=== PATIENT | male | born 1935 | race Caucasian/White ===

== ENCOUNTER 2023-03-13 18:27 | Emergency (ER) | payer MEDICARE ==
[~2023-03-13] VITALS: Ht 182.9 cm; Wt 93.2 kg
[2023-03-13 18:52] VITALS: TEMP 98.7
[2023-03-13 22:40] VITALS: BP 138/75; PULSE 73; RESP 18
[2023-03-13] MEDS: DOXYCYCLINE HYCLATE 100 MG TABLET PO ONE (22:46)
== END 2023-03-14 00:22 | disposition home or self-care (01) ==
LOC: EMS 18:27
DX: S61.411A Laceration without foreign body of right hand, initial encounter (principal); J44.9 Chronic obstructive pulmonary disease, unspecified; X58.XXXA Exposure to other specified factors, initial encounter; Y93.89 Activity, other specified; Y92.89 Other specified places as the place of occurrence of the external cause; Y99.8 Other external cause status
CPT/HCPCS: 99283

== ENCOUNTER 2024-04-10 05:08 | Day surgery (SDC) | payer MEDICARE ==
[~2024-04-10] VITALS: Ht 182.9 cm; Wt 102.3 kg
[~2024-04-10 05:08] MED LIST: CeFAZolin 2 GM/DEXTROSE 50 ML IV ONE; RINGERS SOLUTION,LACTATED 1,000 ML IV ONE
[2024-04-10 05:49] LABS: BASOPHILS % (AUTO) 0.6 % (0.0-2.0); HEMATOCRIT 39.9 % (41-53); LYMPHOCYTES # (AUTO) 2.5 K/uL (1.0-4.8); LYMPHOCYTES % (AUTO) 28.8 % (22.0-44.0); MEAN CORPUSCULAR HEMOGLOBIN 30.8 pg (26.0-34.0); MEAN CORPUSCULAR HGB CONC 32.7 G/dL (31.0-37.0); MEAN CORPUSCULAR VOLUME 94 fL (80-100); MONOCYTES # (AUTO) 0.7 K/uL (0.1-1.0); MONOCYTES % (AUTO) 8.5 % (2.0-9.0); NEUTROPHILS # (AUTO) 5.1 K/uL (1.8-7.7); NEUTROPHILS % (AUTO) 59.1 % (40.0-70.0); PLATELET COUNT (AUTO) 209 K/uL (150-450); RED BLOOD CELL COUNT(AUTO) 4.23 MIL/uL (4.50-5.90); RED CELL DISTRIBUTION WIDTH 15.5 % (11.5-14.5); WHITE BLOOD COUNT (AUTO) 8.6 K/uL (4.5-11.0)
[2024-04-10 06:00] LABS: CALCIUM, TOTAL 8.6 mg/dL (8.8-10.5); CREATININE 1.15 mg/dL (0.60-1.30); POTASSIUM 3.9 mmol/L (3.5-5.1)
[2024-04-10] MEDS ORDERED: VANCOMYCIN HCL 1 GM VIAL ONE (06:06)
[2024-04-10] MEDS ORDERED: MUPIROCIN CALCIUM 2% 22 GM OINTMENT ONE (06:06)
[2024-04-10] MEDS ORDERED: MICROFIBRILLAR COLLAGEN 1 GM PACKAGE TP ONE (06:06)
[2024-04-10] MEDS: CHLORHEXIDINE GLUCONATE 2% TOWELETTE [2'S/6'S] TP ONE (06:09)
[2024-04-10] MEDS: ETHYL ALCOHOL 62% ANTISEPTIC NASAL SANITIZER 0.6 ML AMPUL NASAL ONE (06:10)
[2024-04-10] MEDS: RINGERS SOLUTION,LACTATED 1,000 ML IV ONE (06:10)
[2024-04-10] MEDS: BUPIVACAINE HCL/PF 0.25% 30 ML VIAL ONE (07:14)
[2024-04-10] MEDS ORDERED: FURO20TA4 PO (07:19)
[2024-04-10] MEDS ORDERED: CYAN25006 SL (07:19)
[2024-04-10] MEDS ORDERED: FLUT1BLS19 IH (07:19)
[2024-04-10] MEDS ORDERED: MESA400C2 PO (07:19)
[2024-04-10] MEDS ORDERED: ALFU10TA47 PO (07:19)
[2024-04-10] MEDS ORDERED: CHOL200059 PO (07:19)
[2024-04-10] MEDS ORDERED: LOSA-382 PO (07:19)
[2024-04-10] MEDS ORDERED: MIRA50TA PO (07:19)
[2024-04-10] MEDS ORDERED: APIX5TAB PO (07:19)
[2024-04-10] MEDS ORDERED: ATOR20TA65 PO (07:19)
[2024-04-10] MEDS ORDERED: SOLI10TA7 PO (07:19)
[2024-04-10] MEDS ORDERED: POTA8TAB71 PO (07:19)
[2024-04-10] MEDS ORDERED: QUET200T30 PO (07:19)
[2024-04-10] MEDS ORDERED: CeFAZolin 2 GM/DEXTROSE 50 ML IV ONE (08:00)
[2024-04-10] MEDS ORDERED: PROPOFOL 1% 20 ML VIAL IVP ONE (12:00)
[2024-04-10] MEDS ORDERED: ONDANSETRON HCL 4 MG/2 ML VIAL IVP ONE (12:00)
[2024-04-10] MEDS ORDERED: CeFAZolin SODIUM 1 GM VIAL IVP ONE (12:00)
[2024-04-10] MEDS ORDERED: KETAMINE HCL 50 MG/ML 10 ML VIAL IVP ONE (12:00)
[2024-04-10] MEDS ORDERED: LIDOCAINE/PF 2% 5 ML SYRINGE IVP ONE (12:00)
== END 2024-04-10 09:15 | disposition home or self-care (01) ==
LOC: SURGERY 05:08
PROVIDERS: ATTEND Orthopaedic Surgery
DX: M65.841 Other synovitis and tenosynovitis, right hand (principal); I44.4 Left anterior fascicular block; Z79.899 Other long term (current) drug therapy; J44.9 Chronic obstructive pulmonary disease, unspecified; Z79.82 Long term (current) use of aspirin; Z87.891 Personal history of nicotine dependence; Z72.89 Other problems related to lifestyle; G47.30 Sleep apnea, unspecified; I10 Essential (primary) hypertension; I48.91 Unspecified atrial fibrillation; E78.00 Pure hypercholesterolemia, unspecified; Z85.038 Personal history of other malignant neoplasm of large intestine
CPT/HCPCS: 26055; 80048; 85025; 36415; 93005; J3490 ×3; J2704; J0690 ×2; J2405; J7120; J3370